=== PATIENT | female | born 1985 | race Caucasian/White ===

== ENCOUNTER 2021-02-10 09:00 | Outpatient (RCR) | payer BC, SELFPAY ==
--- NOTE | 2021-01-06 16:42 | PTOPEVAL ---
INITIAL PHYSICAL THERAPY EVALUATION and PLAN OF CARE Thank you for referring Kelly De Jesus to [facility].? Kelly is scheduled to be seen for physical therapy? 0-1x/week for 5 weeks. Please review, sign, date and return this plan of care MARIE. I agree with and certify that the following plan of care is medically necessary. Referring Physician Date Admitting Provider: Attending Provider: Carly Denis MD Referring Provider: *PT Outpatient Evaluation Start: 01/06/21 15:20 Freq: Status: Active Protocol: Document 01/06/21 15:20 REECE (Rec: 01/06/21 16:42 REECE [id number]) Therapy Assessment Status Assessment Status Assessment Status Evaluation Outpatient Past Medical History Past Medical History Source of Past Medical History Patient Endocrine History Hx Hypothyroidism Yes Evaluation Information Problem Diagnosis Pelvic pressure in female Onset beginning of November 2020 Subjective Information Initiated a running program - Query Text:As Reported By Patient/ 2 miles - felt a pressure Family sensation - felt like she had a small prolapse - OB exam - looked fine. Recommended pelvic floor strengthening. Hard coughing/sneezing - will get few drops leaks. Some sense of urgency at times - if didn't go to bathroom right away may have increase in leakage. Prior Level of Function Activity Level (Last 3 Months) Occupation Nurse practitioner - internal medicine Hand Dominance Right Medications Home Meds (Include: OTC, RX, Vitamins, levothyroxine, Herbals, Dose, Route,and Frequency) Query Text:Home Med Entries Will No Longer Recall From Past Visits. Home Meds Must Be Re-entered With Each Visit. Home Setting Home Type House,Multiple Levels Environmental Barriers Stairs, Greater than 4 Living Situation With Minor Child,With Spouse Mobility Assistive Devices (Used Last 3 None Months) Comments Additional Prior Level of Function recreation - read, bake, play Comments with children Pain Assessment Timing of Pain Assessment Timing of Pain Assessment Assessment Self Report Self Report Pain Level 0 Pain Score Pain Score 0: Self Report Cervical and Lumbar ROM Lumbar ROM Lumbar ROM WNL Normal Lumbar Segmental Motion Yes Lumbar Comments + R standing flexion test Lower Extremity Range of Mot
--- NOTE | 2021-02-10 09:50 | PTOPEVAL ---
PHYSICAL THERAPY DISCHARGE SUMMARY Thank you for referring Kelly De Jesus to [facility].? Kelly was seen x 3 visits in PT. She has met goals set - has returned to running without perineal discomfort, decreased incontinence, etc. She is ready for d/c from PT to HEP. I agree with Kelly's discharge from PT. Referring Physician Date Admitting Provider: Attending Provider: Carly Denis MD Referring Provider: *PT Outpatient Evaluation Start: 01/06/21 15:20 Freq: Status: Active Protocol: Document 02/10/21 09:12 REECE (Rec: 02/10/21 09:50 REECE [id number]) Therapy Assessment Status Assessment Status Assessment Status Discharge Evaluation Information Problem Diagnosis Pelvic pressure in female Subjective Information Kelly reports that she has Query Text:As Reported By Patient/ been able to return to running Family - doing okay - no discomfort. Also able to lift son's equipment without lower abdominal/pelvic pressure being felt. Doing well with exercises, reports performing HEP - elevator going down is challenging. Doing pelvic floor contraction prior to lifting activities. Pain Assessment Timing of Pain Assessment Timing of Pain Assessment Assessment Self Report Self Report Pain Level 0 Pain Score Pain Score 0: Self Report Pelvic Health Evaluation Pelvic Floor Assessment Sustained Levator Ani Strength 4/5 Quick Levator Ani Contraction in 15 19 Seconds Pelvic Health Therapy Pelvic Health Exercise Isolated Levator Ani Contraction sitting on ball - [address] Query Text:Position, Hold/Relaxation hold/10 ct relax Time, Repetitions Therapeutic Ball side/side;front/back;CW/CCW x Query Text:Movement Direction, 15 reps ea Repetitions Elevator Techniques going upx [address] hold x 6; Query Text:Repetitions, Number of going down x 3 fls x 5reps; Steps Going Up, Number of Steps Going variable x 5 reps Down Resistive 'Shh' Technique long, slow x 5 reps; quick, Query Text:Quick, Hard, Long, Soft, hard x 5 reps Number of Repetitions Other Exercises reviewed to tighten pelvic Query Text:Record Sets, Repetitions, floor prior to lifting, doing Resistance and Position set of exercises prior to running, etc. Exercise Limitations Muscle Weakness Response to Exercise Maintained Current Level Endurance Good Rehab Teaching Re
== END 2021-02-10 13:47 | disposition home or self-care (01) ==
LOC: ANHPT 09:00
PROVIDERS: PCP Internal Medicine
DX: R10.2 Pelvic and perineal pain (principal)
CPT/HCPCS: 97110; 97161